=== PATIENT | female | born 1975 | race Caucasian/White ===

== ENCOUNTER 2018-12-13 12:52 | Emergency (ER) | payer MEDICAID ==
[~2018-12-13] VITALS: Ht 154.9 cm; Wt 64.0 kg
[2018-12-13 13:17] VITALS: Ht 154.9 cm; Wt 64.0 kg
[2018-12-13 17:30] LABS: BASOPHIL % 0.5 % (0-2); PLATELET COUNT 293 x10^3mcL (130-400)
[2018-12-13 17:34] LABS: RED CELL DISTRIBUTION WIDTH 16.1 % (11.5-14.5)
[2018-12-13 18:03] LABS: CALCIUM 8.3 mg/dL (8.5-10.1); CARBON DIOXIDE 25.3 mmol/L (21-32); CHLORIDE SERUM 105 mmol/L (98-107); CREATININE SERUM 0.6 mg/dL (0.6-1.0); GFR1 > 60 mL/min; GLUCOSE SERUM 106 mg/dL (74-106); POTASSIUM SERUM 3.6 mmol/L (3.5-5.1); SODIUM SERUM 139 mmol/L (136-145)
[2018-12-13 18:08] LABS: ALKALINE PHOSPHATASE 92 U/L (46-116); ALT/SGPT 354 U/L (14-59); AMYLASE 76 U/L (25-115); AST/SGOT 580 U/L (15-37); BILIRUBIN TOTAL 0.52 mg/dL (0.20-1.00); LIPASE 131 IU/L (73-393); TOTAL PROTEIN, SERUM 7.3 g/dL (6.4-8.2)
[2018-12-13 18:09] LABS: ALBUMIN 3.3 g/dL (3.4-5.0)
[2018-12-13 18:57] VITALS: BP 101/65
== END 2018-12-13 18:57 | disposition home or self-care (01) ==
LOC: ED 12:52
PROVIDERS: Emergency Medicine
DX: K21.9 Gastro-esophageal reflux disease without esophagitis (principal)
CPT/HCPCS: C9113; J2405; J7030